=== PATIENT | male | born 1980 | race Caucasian/White ===

== ENCOUNTER 2019-08-11 10:04 | Inpatient (IN) ==
[2019-08-11] MEDS ORDERED: Isovue-370 500 ML BOTTLE IVP ONE (11:36)
[2019-08-11] MEDS ORDERED: Morphine Sulfate 2 MG/ML SYRINGE IVP ONE ×2 (11:41→14:16)
[2019-08-11 11:51] LABS: Basophils # 0.1 K/mcL (0.0-0.2); Basophils % 0.4 %; Eosinophils # 0.2 K/mcL (0.0-0.6); Eosinophils % 1.4 %; Hematocrit 38.4 % (37.5-50.1); Hemoglobin 12.2 g/dL (12.9-16.9); Immature Granulocytes % 0.3 % (0-4); Lymphocytes # 2.8 K/mcL (0.6-4.6); Lymphocytes % 22.1 %; Mean Corpuscular HGB Conc 31.8 g/dL (31.6-35.5); Mean Corpuscular Hemoglobin 24.7 pg (28.0-33.3); Mean Corpuscular Volume 77.7 fL (83.0-100.0); Mean Platelet Volume 8.8 fL (9.4-12.4); Monocytes % 8.1 %; Neutrophils # 8.5 K/mcL (1.6-8.9); Platelet Count 430 K/mcL (140-400); Red Blood Count 4.94 M/mcL (4.19-5.50); Red Cell Distribution Width 15.2 % (11.5-14.5); Segmented Neutrophils % 67.7 %; White Blood Count 12.6 K/mcL (4.3-11.1)
[2019-08-11 12:09] LABS: Alanine Aminotransferase 20 Units/L (7-52); Albumin 3.4 g/dL (3.5-5.7); Albumin/Globulin Ratio 0.8 (1.1-2.2); Alkaline Phosphatase 89 Units/L (34-104); Aspartate Amino Transferase 21 Units/L (13-39); BUN/Creatinine Ratio 13 (6-26); Bilirubin,Total 0.4 mg/dL (0.3-1.0); Blood Urea Nitrogen 8 mg/dL (6-20); Calcium 8.9 mg/dL (8.6-10.3); Carbon Dioxide 27 mEq/L (23-29); Chloride 101 mEq/L (98-107); Globulin 4.2 g/dL (2.4-3.5); Glucose 77 mg/dL (70-105); Osmolality,Calculated 275 (280-300); Potassium 4.4 mEq/L (3.5-5.1); Sodium 134 mEq/L (136-145); Total Protein 7.6 g/dL (6.4-8.9); eGFR For African Americans > 60 (> 60); eGFR For Non-African Americans > 60 (> 60)
[2019-08-11] MEDS ORDERED: Acetaminophen 325 MG TABLET PO PRN (14:35)
[2019-08-11] MEDS ORDERED: Naloxone 0.4 MG/ML INJ IVP PRN (14:35)
[2019-08-11] MEDS: *HR* OxyCODONE Immed Rel 5 MG TABLET PO PRN ×3 (16:33→23:55)
[2019-08-11] MEDS: Piperacillin/Tazobactam 3.375 GM in 0.9 % Sodium Chloride Mini Bag 100 ML IVPB SCH ×2 (16:35→23:41)
[2019-08-11] MEDS ORDERED: Ondansetron 4 MG/2 ML VIAL IVP PRN (17:16)
[2019-08-11] MEDS: Pregabalin 75 MG CAPSULE PO SCH ×2 (18:14→20:49)
[2019-08-11] MEDS: Nicotine 14 MG PATCH.TD24 TD SCH (18:17)
[2019-08-11] MEDS: *HR* LORazepam 0.5 MG TABLET PO PRN (18:19)
[2019-08-11] MEDS: *HR* HYDROcodone/Acet 5/325 mg TABLET PO PRN (20:49)
[2019-08-11] MEDS: Divalproex (12 HR) 500 MG TABLET PO SCH (20:49)
[2019-08-12] MEDS: *HR* HYDROcodone/Acet 5/325 mg TABLET PO PRN (03:47)
[2019-08-12 05:23] LABS: Basophils # 0.1 K/mcL (0.0-0.2); Basophils % 0.4 %; Eosinophils # 0.3 K/mcL (0.0-0.6); Eosinophils % 2.5 %; Hematocrit 37.7 % (37.5-50.1); Hemoglobin 11.4 g/dL (12.9-16.9); Immature Granulocytes % 0.2 % (0-4); Lymphocytes # 2.8 K/mcL (0.6-4.6); Lymphocytes % 22.2 %; Mean Corpuscular HGB Conc 30.2 g/dL (31.6-35.5); Mean Corpuscular Hemoglobin 24.2 pg (28.0-33.3); Monocytes % 8.3 %; Neutrophils # 8.2 K/mcL (1.6-8.9); Platelet Count 441 K/mcL (140-400); Red Blood Count 4.71 M/mcL (4.19-5.50); Red Cell Distribution Width 14.9 % (11.5-14.5); Segmented Neutrophils % 66.4 %; White Blood Count 12.4 K/mcL (4.3-11.1)
[2019-08-12 05:33] LABS: BUN/Creatinine Ratio 15 (6-26); Blood Urea Nitrogen 11 mg/dL (6-20); Carbon Dioxide 28 mEq/L (23-29); Chloride 93 mEq/L (98-107); Glucose 115 mg/dL (70-105); Osmolality,Calculated 270 (280-300); Potassium 4.4 mEq/L (3.5-5.1); Sodium 130 mEq/L (136-145); eGFR For African Americans > 60 (> 60); eGFR For Non-African Americans > 60 (> 60)
[2019-08-12] MEDS: *HR* Enoxaparin 40 MG/0.4 ML SYRINGE SQ SCH (06:10)
[2019-08-12] MEDS ORDERED: *HR* HYDROmorphone 2 MG TABLET PO ONE (06:20)
[2019-08-12] MEDS: Piperacillin/Tazobactam 3.375 GM in 0.9 % Sodium Chloride Mini Bag 100 ML IVPB SCH ×2 (07:52→15:14)
[2019-08-12] MEDS: Divalproex (12 HR) 500 MG TABLET PO SCH ×3 (07:52→22:22)
[2019-08-12] MEDS: Multivit/Ca/Min/Fe/FA 1 TAB TABLET PO SCH (07:53)
[2019-08-12] MEDS: Pregabalin 75 MG CAPSULE PO SCH ×2 (07:53→22:22)
[2019-08-12] MEDS: Nicotine 14 MG PATCH.TD24 TD SCH (07:53)
[2019-08-12] MEDS: *HR* OxyCODONE Immed Rel 5 MG TABLET PO PRN ×2 (12:29→18:20)
[2019-08-12] MEDS: *HR* LORazepam 0.5 MG TABLET PO PRN ×2 (15:19→22:48)
[2019-08-13] MEDS: Piperacillin/Tazobactam 3.375 GM in 0.9 % Sodium Chloride Mini Bag 100 ML IVPB SCH ×4 (00:45→23:56)
[2019-08-13] MEDS: *HR* OxyCODONE Immed Rel 5 MG TABLET PO PRN ×4 (00:47→23:18)
[2019-08-13] MEDS: *HR* Enoxaparin 40 MG/0.4 ML SYRINGE SQ SCH (06:34)
[2019-08-13 06:39] LABS: Basophils # 0.1 K/mcL (0.0-0.2); Basophils % 0.4 %; Eosinophils # 0.4 K/mcL (0.0-0.6); Eosinophils % 2.9 %; Hematocrit 37.9 % (37.5-50.1); Hemoglobin 11.6 g/dL (12.9-16.9); Immature Granulocytes % 0.3 % (0-4); Lymphocytes # 3.2 K/mcL (0.6-4.6); Lymphocytes % 25.2 %; Mean Corpuscular HGB Conc 30.6 g/dL (31.6-35.5); Mean Corpuscular Hemoglobin 24.5 pg (28.0-33.3); Mean Platelet Volume 8.9 fL (9.4-12.4); Monocytes # 1.1 K/mcL (0.0-1.3); Monocytes % 8.5 %; Neutrophils # 7.9 K/mcL (1.6-8.9); Platelet Count 452 K/mcL (140-400); Red Blood Count 4.74 M/mcL (4.19-5.50); Red Cell Distribution Width 15.1 % (11.5-14.5); Segmented Neutrophils % 62.7 %; White Blood Count 12.6 K/mcL (4.3-11.1)
[2019-08-13 06:58] LABS: BUN/Creatinine Ratio 17 (6-26); Blood Urea Nitrogen 11 mg/dL (6-20); Calcium 8.9 mg/dL (8.6-10.3); Carbon Dioxide 30 mEq/L (23-29); Chloride 93 mEq/L (98-107); Glucose 109 mg/dL (70-105); Osmolality,Calculated 274 (280-300); Potassium 4.1 mEq/L (3.5-5.1); Sodium 132 mEq/L (136-145); eGFR For African Americans > 60 (> 60); eGFR For Non-African Americans > 60 (> 60)
[2019-08-13] MEDS: Multivit/Ca/Min/Fe/FA 1 TAB TABLET PO SCH (07:30)
[2019-08-13] MEDS: Divalproex (12 HR) 500 MG TABLET PO SCH ×3 (07:31→20:54)
[2019-08-13] MEDS: Nicotine 14 MG PATCH.TD24 TD SCH (07:31)
[2019-08-13] MEDS: Pregabalin 75 MG CAPSULE PO SCH ×2 (07:31→20:54)
[2019-08-13] MEDS: Acetaminophen 325 MG TABLET PO SCH ×3 (12:04→23:56)
[2019-08-13] MEDS: Ketorolac 30 MG/ML VIAL IVP PRN ×2 (12:05→20:54)
[2019-08-13] MEDS: *HR* LORazepam 0.5 MG TABLET PO PRN (20:54)
[2019-08-14] MEDS ORDERED: Nicotine 2 MG GUM BC PRN (00:47)
[2019-08-14] MEDS: Ketorolac 30 MG/ML VIAL IVP PRN ×2 (03:51→14:02)
[2019-08-14] MEDS: *HR* LORazepam 0.5 MG TABLET PO PRN (03:57)
[2019-08-14 06:12] LABS: Hematocrit 32.1 % (37.5-50.1); Hemoglobin 10.2 g/dL (12.9-16.9); Mean Corpuscular HGB Conc 31.8 g/dL (31.6-35.5); Mean Corpuscular Hemoglobin 24.6 pg (28.0-33.3); Mean Corpuscular Volume 77.5 fL (83.0-100.0); Mean Platelet Volume 8.8 fL (9.4-12.4); Platelet Count 350 K/mcL (140-400); Red Blood Count 4.14 M/mcL (4.19-5.50)
[2019-08-14 06:14] LABS: White Blood Count 6.1 K/mcL (4.3-11.1)
[2019-08-14] MEDS: Acetaminophen 325 MG TABLET PO SCH ×3 (06:21→19:33)
[2019-08-14] MEDS: *HR* Enoxaparin 40 MG/0.4 ML SYRINGE SQ SCH (06:22)
[2019-08-14 06:24] LABS: BUN/Creatinine Ratio 26 (6-26); Blood Urea Nitrogen 20 mg/dL (6-20); Calcium 8.5 mg/dL (8.6-10.3); Carbon Dioxide 32 mEq/L (23-29); Chloride 95 mEq/L (98-107); Glucose 119 mg/dL (70-105); Magnesium 1.8 mg/dL (1.6-2.6); Osmolality,Calculated 282 (280-300); Potassium 3.9 mEq/L (3.5-5.1); Sodium 134 mEq/L (136-145); eGFR For African Americans > 60 (> 60); eGFR For Non-African Americans > 60 (> 60)
[2019-08-14] MEDS: *HR* OxyCODONE Immed Rel 5 MG TABLET PO PRN ×3 (06:28→22:40)
[2019-08-14] MEDS: Divalproex (12 HR) 500 MG TABLET PO SCH ×3 (09:00→22:14)
[2019-08-14] MEDS: Multivit/Ca/Min/Fe/FA 1 TAB TABLET PO SCH (09:01)
[2019-08-14] MEDS: Pregabalin 75 MG CAPSULE PO SCH ×2 (09:01→22:14)
[2019-08-14] MEDS: Nicotine 14 MG PATCH.TD24 TD SCH (09:02)
[2019-08-14] MEDS: Piperacillin/Tazobactam 3.375 GM in 0.9 % Sodium Chloride Mini Bag 100 ML IVPB SCH ×2 (09:04→19:33)
[2019-08-14] MEDS ORDERED: Aminoglycoside Consult 1 EACH MC ONE (14:28)
[2019-08-15] MEDS: Piperacillin/Tazobactam 3.375 GM in 0.9 % Sodium Chloride Mini Bag 100 ML IVPB SCH (00:05)
[2019-08-15] MEDS: Acetaminophen 325 MG TABLET PO SCH ×3 (00:35→12:38)
[2019-08-15] MEDS: *HR* LORazepam 0.5 MG TABLET PO PRN (00:35)
[2019-08-15] MEDS: Ketorolac 30 MG/ML VIAL IVP PRN (00:38)
[2019-08-15] MEDS ORDERED: Piperacillin/Tazobactam 3.375 GM in 0.9 % Sodium Chloride Mini Bag 100 ML IVPB SCH (04:00)
[2019-08-15] MEDS ORDERED: Piperacillin/Tazobactam 3.375 GM VIAL ONE (04:23)
[2019-08-15] MEDS: *HR* Enoxaparin 40 MG/0.4 ML SYRINGE SQ SCH (04:24)
[2019-08-15 04:35] LABS: Hematocrit 30.1 % (37.5-50.1); Hemoglobin 9.6 g/dL (12.9-16.9); Mean Corpuscular HGB Conc 31.9 g/dL (31.6-35.5); Mean Corpuscular Hemoglobin 24.9 pg (28.0-33.3); Mean Corpuscular Volume 78.2 fL (83.0-100.0); Platelet Count 338 K/mcL (140-400); Red Blood Count 3.85 M/mcL (4.19-5.50); Red Cell Distribution Width 14.9 % (11.5-14.5); White Blood Count 5.4 K/mcL (4.3-11.1)
[2019-08-15 04:56] LABS: BUN/Creatinine Ratio 27 (6-26); Blood Urea Nitrogen 18 mg/dL (6-20); Calcium 7.9 mg/dL (8.6-10.3); Carbon Dioxide 31 mEq/L (23-29); Chloride 100 mEq/L (98-107); Glucose 94 mg/dL (70-105); Osmolality,Calculated 284 (280-300); Potassium 4.2 mEq/L (3.5-5.1); Sodium 136 mEq/L (136-145); eGFR For African Americans > 60 (> 60); eGFR For Non-African Americans > 60 (> 60)
[2019-08-15 07:01] VITALS: BP 114/58
[2019-08-15] MEDS: Nicotine 14 MG PATCH.TD24 TD SCH (09:00)
[2019-08-15] MEDS ORDERED: Sulfamethoxazole/Trimeth DS 1 EACH TABLET PO SCH (09:00)
[2019-08-15] MEDS ORDERED: cephALEXin 500 MG CAPSULE PO SCH ×2 (09:00→17:00)
[2019-08-15] MEDS: Divalproex (12 HR) 500 MG TABLET PO SCH (12:38)
[2019-08-15] MEDS: Pregabalin 75 MG CAPSULE PO SCH (12:38)
[2019-08-15] MEDS: *HR* OxyCODONE Immed Rel 5 MG TABLET PO PRN (12:38)
== END 2019-08-15 14:29 | disposition home or self-care (01) | DRG 364 ==
LOC: 3BNU 10:04 → EMEROOARM 10:04 → SUATTDRO 13:50 → 3BNU 14:27 → 3NENU 08-14 23:22
PROVIDERS: ADMIT Internal Medicine; ATTEND Internal Medicine

== ENCOUNTER 2020-02-08 19:50 | Inpatient (IN) ==
[2020-02-08] MEDS ORDERED: *HR* LORazepam 2 MG/ML VIAL IVP ONE (20:21)
[2020-02-08] MEDS ORDERED: *HR* HYDROmorphone (PF) 1 MG/ML SYRINGE IVP ONE ×2 (20:21→21:29)
[2020-02-08 21:02] LABS: Basophils % 0.5 %; Eosinophils # 0.3 K/mcL (0.0-0.6); Eosinophils % 3.3 %; Hematocrit 37.3 % (37.5-50.1); Hemoglobin 11.5 g/dL (12.9-16.9); Immature Granulocytes % 0.2 % (0-4); Lymphocytes # 3.5 K/mcL (0.6-4.6); Lymphocytes % 40.9 %; Mean Corpuscular HGB Conc 30.8 g/dL (31.6-35.5); Mean Corpuscular Hemoglobin 25.2 pg (28.0-33.3); Mean Corpuscular Volume 81.8 fL (83.0-100.0); Mean Platelet Volume 9.1 fL (9.4-12.4); Monocytes # 0.8 K/mcL (0.0-1.3); Monocytes % 9.7 %; Neutrophils # 3.9 K/mcL (1.6-8.9); Platelet Count 395 K/mcL (140-400); Red Blood Count 4.56 M/mcL (4.19-5.50); Red Cell Distribution Width 16.7 % (11.5-14.5); Segmented Neutrophils % 45.4 %; White Blood Count 8.6 K/mcL (4.3-11.1)
[2020-02-08 21:10] LABS: Alanine Aminotransferase 24 Units/L (7-52); Albumin 3.4 g/dL (3.5-5.7); Albumin/Globulin Ratio 0.9 (1.1-2.2); Alkaline Phosphatase 101 Units/L (34-104); Aspartate Amino Transferase 18 Units/L (13-39); BUN/Creatinine Ratio 16 (6-26); Bilirubin,Total 0.3 mg/dL (0.3-1.0); Blood Urea Nitrogen 9 mg/dL (6-20); C-Reactive Protein 135 mg/L (Less than 10); Calcium 8.2 mg/dL (8.6-10.3); Carbon Dioxide 30 mEq/L (23-29); Chloride 101 mEq/L (98-107); Globulin 3.8 g/dL (2.4-3.5); Glucose 99 mg/dL (70-105); Osmolality,Calculated 279 (280-300); Sodium 135 mEq/L (136-145); Total Protein 7.2 g/dL (6.4-8.9); eGFR For African Americans > 60 (> 60); eGFR For Non-African Americans > 60 (> 60)
[2020-02-09] MEDS ORDERED: Ketorolac 15 MG/ML VIAL IVP PRN (00:11)
[2020-02-09] MEDS ORDERED: Naloxone 0.4 MG/ML INJ IVP PRN (00:11)
[2020-02-09] MEDS: *HR* HYDROmorphone (PF) 1 MG/ML SYRINGE IVP PRN ×6 (00:51→21:03)
[2020-02-09] MEDS: Nicotine 21 MG PATCH.TD24 TD SCH ×2 (02:58→07:45)
[2020-02-09] MEDS: *HR* Heparin 5,000 UNIT/ML VIAL SQ SCH ×2 (06:01→16:24)
[2020-02-09 07:23] LABS: Hematocrit 31.7 % (37.5-50.1); Mean Corpuscular HGB Conc 31.5 g/dL (31.6-35.5); Mean Corpuscular Hemoglobin 25.6 pg (28.0-33.3); Mean Corpuscular Volume 81.1 fL (83.0-100.0); Mean Platelet Volume 9.5 fL (9.4-12.4); Platelet Count 348 K/mcL (140-400); Red Blood Count 3.91 M/mcL (4.19-5.50); Red Cell Distribution Width 16.6 % (11.5-14.5); White Blood Count 6.2 K/mcL (4.3-11.1)
[2020-02-09 07:30] LABS: INR 1.2; Prothrombin Time 13.5 Seconds (9.4-12.1)
[2020-02-09 07:47] LABS: BUN/Creatinine Ratio 15 (6-26); Blood Urea Nitrogen 9 mg/dL (6-20); Calcium 8.3 mg/dL (8.6-10.3); Carbon Dioxide 29 mEq/L (23-29); Chloride 102 mEq/L (98-107); Glucose 91 mg/dL (70-105); Magnesium 1.8 mg/dL (1.6-2.6); Osmolality,Calculated 282 (280-300); Phosphorous 4.8 mg/dL (2.7-4.5); Potassium 3.8 mEq/L (3.5-5.1); Sodium 137 mEq/L (136-145); eGFR For African Americans > 60 (> 60); eGFR For Non-African Americans > 60 (> 60)
[2020-02-09] MEDS ORDERED: Vancomycin 1,250 MG/262.5 ML IV.SOLN IVPB SCH (08:00)
[2020-02-09] MEDS: Divalproex (24 HR) 500 MG TABLET PO SCH ×3 (09:41→21:03)
[2020-02-09] MEDS: ALPRAZolam 0.5 MG TABLET PO PRN ×2 (09:41→21:03)
[2020-02-09] MEDS: Pregabalin 75 MG CAPSULE PO SCH ×2 (09:41→21:03)
[2020-02-09] MEDS: Multivit/Ca/Min/Fe/FA 1 TAB TABLET PO SCH (12:53)
[2020-02-09] MEDS: cefTRIAXone 2,000 MG in Water for inj. (sterile) 20 ML IVP SCH (12:54)
[2020-02-09] MEDS: Vancomycin 500 MG in 0.9 % Sodium Chloride Mini Bag 100 ML IVPB ONE ×2 (12:56→13:12)
[2020-02-09] MEDS: Ondansetron 4 MG/2 ML VIAL IVP PRN (16:46)
[2020-02-09] MEDS ORDERED: Vancomycin 1,500 MG/265 ML IV.SOLN IVPB SCH ×2 (20:00→23:00)
[2020-02-10] MEDS: *HR* HYDROmorphone (PF) 1 MG/ML SYRINGE IVP PRN ×5 (00:08→23:33)
[2020-02-10 00:35] LABS: BUN/Creatinine Ratio 17 (6-26); Blood Urea Nitrogen 10 mg/dL (6-20); Carbon Dioxide 30 mEq/L (23-29); Chloride 101 mEq/L (98-107); Glucose 105 mg/dL (70-105); Magnesium 1.6 mg/dL (1.6-2.6); Osmolality,Calculated 277 (280-300); Phosphorous 4.8 mg/dL (2.7-4.5); Potassium 4.4 mEq/L (3.5-5.1); Sodium 134 mEq/L (136-145); eGFR For African Americans > 60 (> 60); eGFR For Non-African Americans > 60 (> 60)
[2020-02-10 00:45] LABS: Basophils % 0.6 %; Eosinophils # 0.4 K/mcL (0.0-0.6); Eosinophils % 8.4 %; Hemoglobin 9.4 g/dL (12.9-16.9); Lymphocytes # 2.5 K/mcL (0.6-4.6); Lymphocytes % 52.3 %; Mean Corpuscular HGB Conc 30.3 g/dL (31.6-35.5); Mean Corpuscular Hemoglobin 25.1 pg (28.0-33.3); Mean Corpuscular Volume 82.9 fL (83.0-100.0); Mean Platelet Volume 9.2 fL (9.4-12.4); Monocytes # 0.4 K/mcL (0.0-1.3); Monocytes % 7.8 %; Neutrophils # 1.5 K/mcL (1.6-8.9); Platelet Count 340 K/mcL (140-400); Red Blood Count 3.74 M/mcL (4.19-5.50); Red Cell Distribution Width 16.2 % (11.5-14.5); Segmented Neutrophils % 30.9 %; White Blood Count 4.8 K/mcL (4.3-11.1)
[2020-02-10] MEDS: Vancomycin 1,500 MG/265 ML IV.SOLN IVPB SCH (00:59)
[2020-02-10] MEDS: *HR* Heparin 5,000 UNIT/ML VIAL SQ SCH ×2 (05:09→19:40)
[2020-02-10] MEDS ORDERED: Total Joint Mixture (50 ml) INTRAART ONE (06:00)
[2020-02-10] MEDS: Multivit/Ca/Min/Fe/FA 1 TAB TABLET PO SCH (10:17)
[2020-02-10] MEDS: Nicotine 21 MG PATCH.TD24 TD SCH (10:27)
[2020-02-10] MEDS: Divalproex (24 HR) 500 MG TABLET PO SCH ×3 (10:28→22:04)
[2020-02-10] MEDS: Pregabalin 75 MG CAPSULE PO SCH ×2 (10:29→22:04)
[2020-02-10] MEDS: cefTRIAXone 2,000 MG in Water for inj. (sterile) 20 ML IVP SCH (10:29)
[2020-02-10] MEDS: Ondansetron 4 MG/2 ML VIAL IVP PRN (10:37)
[2020-02-10] MEDS: ALPRAZolam 0.5 MG TABLET PO PRN ×2 (10:37→23:10)
[2020-02-10] MEDS ORDERED: Vancomycin 1,250 MG/262.5 ML IV.SOLN IVPB SCH ×2 (13:30→23:00)
[2020-02-10] MEDS ORDERED: *HR* FentaNYL (PF) 100 MCG/2 ML VIAL ONE (16:30)
[2020-02-10] MEDS ORDERED: Lidocaine -MPF 2% 2 ML VIAL ONE ×2 (16:30→16:34)
[2020-02-10] MEDS ORDERED: *HR* Midazolam HCl 2 MG/2 ML VIAL ONE (16:30)
[2020-02-10] MEDS ORDERED: *HR* Propofol 200 MG/20 ML VIAL IVP ONE (16:30)
[2020-02-10] MEDS ORDERED: *HR* FentaNYL (PF) 100 MCG/2 ML VIAL IVP PRN (16:37)
[2020-02-10] MEDS ORDERED: Ethanol\\Acetic Acid\\Na Ace\\Ben 1,000 ML IRRIG.SOLN IR ONE (16:50)
[2020-02-10] MEDS ORDERED: Vancomycin 1,000 MG VIAL ONE (16:51)
[2020-02-10] MEDS ORDERED: Ondansetron 4 MG/2 ML VIAL ONE (17:03)
[2020-02-10] MEDS ORDERED: Dexamethasone 4 MG/ML VIAL ONE (17:03)
[2020-02-10] MEDS ORDERED: Tranexamic Acid 1,000 MG/10 ML VIAL ONE (17:23)
[2020-02-10] MEDS ORDERED: *HR* HYDROMORPHONE 2 MG/ML VIAL ONE (17:27)
[2020-02-10] MEDS: *HR* HYDROmorphone PF 0.5 MG/0.5 ML SYRINGE IVP PRN ×4 (18:54→19:13)
[2020-02-10] MEDS ORDERED: *HR* OxyCODONE Immed Rel 5 MG TABLET PO PRN (19:15)
[2020-02-10] MEDS ORDERED: *HR* LORazepam 2 MG/ML VIAL IVP PRN (19:15)
[2020-02-10] MEDS ORDERED: *HR* HYDROmorphone (PF) 1 MG/ML SYRINGE IVP PRN (19:15)
[2020-02-10] MEDS ORDERED: Ringers Solution, Lactated 1,000 ML ONE (19:26)
[2020-02-10 19:46] LABS: Hematocrit 33.8 % (37.5-50.1); Hemoglobin 10.3 g/dL (12.9-16.9)
[2020-02-10] MEDS ORDERED: MOM Conc 10 ML UD.LIQ PO PRN (20:01)
[2020-02-10] MEDS ORDERED: Naloxone 0.4 MG/ML INJ IVP PRN ×2 (20:01)
[2020-02-10] MEDS ORDERED: Ondansetron 4 MG/2 ML VIAL IVP PRN ×2 (20:01)
[2020-02-10] MEDS ORDERED: Ropivacaine/PF 0.5% 24.62 ML, EPINEPHrine 0.25 MG, cloNIDine 0.04 MG, Ketorolac 15 MG, ... INTRAART ONE (20:01)
[2020-02-10] MEDS ORDERED: Sennosides 8.6 MG TABLET PO PRN (20:01)
[2020-02-10] MEDS ORDERED: *HR* Promethazine 25 MG/ML VIAL IVP PRN (20:01)
[2020-02-10] MEDS: Ascorbic Acid 500 MG TABLET PO SCH (22:04)
[2020-02-10] MEDS: Ketorolac 15 MG/ML VIAL IVP PRN (22:04)
[2020-02-11] MEDS: *HR* HYDROmorphone (PF) 1 MG/ML SYRINGE IVP PRN ×3 (04:22→11:48)
[2020-02-11 05:32] LABS: Basophils % 0.1 %; Hematocrit 28.4 % (37.5-50.1); Immature Granulocytes % 0.2 % (0-4); Lymphocytes # 1.4 K/mcL (0.6-4.6); Lymphocytes % 17.5 %; Mean Corpuscular HGB Conc 30.3 g/dL (31.6-35.5); Mean Corpuscular Hemoglobin 24.7 pg (28.0-33.3); Mean Corpuscular Volume 81.6 fL (83.0-100.0); Mean Platelet Volume 9.3 fL (9.4-12.4); Monocytes # 0.5 K/mcL (0.0-1.3); Monocytes % 5.8 %; Neutrophils # 6.2 K/mcL (1.6-8.9); Platelet Count 384 K/mcL (140-400); Red Blood Count 3.48 M/mcL (4.19-5.50); Red Cell Distribution Width 15.7 % (11.5-14.5); Segmented Neutrophils % 76.4 %
[2020-02-11 05:33] LABS: Hemoglobin 8.6 g/dL (12.9-16.9); White Blood Count 8.1 K/mcL (4.3-11.1)
[2020-02-11 05:46] LABS: BUN/Creatinine Ratio 19 (6-26); Blood Urea Nitrogen 10 mg/dL (6-20); Calcium 8.3 mg/dL (8.6-10.3); Carbon Dioxide 31 mEq/L (23-29); Chloride 98 mEq/L (98-107); Glucose 212 mg/dL (70-105); Osmolality,Calculated 281 (280-300); Potassium 4.7 mEq/L (3.5-5.1); Sodium 133 mEq/L (136-145); eGFR For African Americans > 60 (> 60); eGFR For Non-African Americans > 60 (> 60)
[2020-02-11] MEDS: Nicotine 21 MG PATCH.TD24 TD SCH (08:35)
[2020-02-11] MEDS: Divalproex (24 HR) 500 MG TABLET PO SCH ×3 (08:36→20:24)
[2020-02-11] MEDS: Aspirin Enteric Coated 81 MG Tablet PO SCH (08:37)
[2020-02-11] MEDS: Ascorbic Acid 500 MG TABLET PO SCH ×2 (08:38→17:55)
[2020-02-11] MEDS: Pregabalin 75 MG CAPSULE PO SCH ×2 (08:38→20:25)
[2020-02-11] MEDS: cefTRIAXone 2,000 MG in Water for inj. (sterile) 20 ML IVP SCH (08:39)
[2020-02-11] MEDS: ALPRAZolam 0.5 MG TABLET PO PRN ×2 (08:46→14:35)
[2020-02-11] MEDS ORDERED: Multivit/Ca/Min/Fe/FA 1 TAB TABLET PO SCH (09:00)
[2020-02-11] MEDS: Vancomycin 1,250 MG/262.5 ML IV.SOLN IVPB SCH ×2 (09:36→17:54)
[2020-02-11] MEDS: Ketorolac 15 MG/ML VIAL IVP PRN (09:50)
[2020-02-11] MEDS: Multivit/Ca/Min/Fe/FA 1 TAB TABLET PO SCH (11:47)
[2020-02-11] MEDS: *HR* OxyCODONE Immed Rel 5 MG TABLET PO PRN ×2 (14:36→20:25)
[2020-02-11] MEDS: *HR* HYDROcodone/Acet 5/325 mg TABLET PO PRN (17:55)
[2020-02-12] MEDS: *HR* HYDROcodone/Acet 5/325 mg TABLET PO PRN (00:03)
[2020-02-12] MEDS: Vancomycin 1,250 MG/262.5 ML IV.SOLN IVPB SCH ×2 (00:08→09:42)
[2020-02-12] MEDS: ALPRAZolam 0.5 MG TABLET PO PRN ×2 (00:11→16:17)
[2020-02-12] MEDS: *HR* OxyCODONE Immed Rel 5 MG TABLET PO PRN ×3 (02:45→22:56)
[2020-02-12 03:09] LABS: Basophils % 0.1 %; Eosinophils # 0.1 K/mcL (0.0-0.6); Eosinophils % 1.1 %; Hematocrit 24.7 % (37.5-50.1); Hemoglobin 7.6 g/dL (12.9-16.9); Immature Granulocytes % 0.3 % (0-4); Lymphocytes # 3.2 K/mcL (0.6-4.6); Mean Corpuscular HGB Conc 30.8 g/dL (31.6-35.5); Mean Corpuscular Hemoglobin 25.1 pg (28.0-33.3); Mean Corpuscular Volume 81.5 fL (83.0-100.0); Mean Platelet Volume 9.2 fL (9.4-12.4); Monocytes # 0.5 K/mcL (0.0-1.3); Neutrophils # 3.4 K/mcL (1.6-8.9); Platelet Count 327 K/mcL (140-400); Red Blood Count 3.03 M/mcL (4.19-5.50); Red Cell Distribution Width 16.1 % (11.5-14.5); Segmented Neutrophils % 47.5 %; White Blood Count 7.2 K/mcL (4.3-11.1)
[2020-02-12 03:27] LABS: BUN/Creatinine Ratio 14 (6-26); Blood Urea Nitrogen 7 mg/dL (6-20); Calcium 7.9 mg/dL (8.6-10.3); Carbon Dioxide 32 mEq/L (23-29); Chloride 102 mEq/L (98-107); Glucose 123 mg/dL (70-105); Magnesium 1.7 mg/dL (1.6-2.6); Osmolality,Calculated 283 (280-300); Phosphorous 3.7 mg/dL (2.7-4.5); Potassium 4.1 mEq/L (3.5-5.1); Sodium 137 mEq/L (136-145); eGFR For African Americans > 60 (> 60); eGFR For Non-African Americans > 60 (> 60)
[2020-02-12] MEDS ORDERED: *HR* HYDROmorphone (PF) 1 MG/ML SYRINGE IVP PRN (08:34)
[2020-02-12] MEDS ORDERED: *HR* FentaNYL PATCH 25 MCG PATCH TD SCH (08:45)
[2020-02-12] MEDS: Nicotine 21 MG PATCH.TD24 TD SCH (09:33)
[2020-02-12] MEDS: Aspirin Enteric Coated 81 MG Tablet PO SCH (09:35)
[2020-02-12] MEDS: cefTRIAXone 2,000 MG in Water for inj. (sterile) 20 ML IVP SCH (09:38)
[2020-02-12] MEDS: Divalproex (24 HR) 500 MG TABLET PO SCH ×3 (09:38→19:56)
[2020-02-12] MEDS: Ascorbic Acid 500 MG TABLET PO SCH ×2 (09:38→16:17)
[2020-02-12] MEDS: Pregabalin 75 MG CAPSULE PO SCH ×2 (09:38→19:56)
[2020-02-12] MEDS: Multivit/Ca/Min/Fe/FA 1 TAB TABLET PO SCH (12:21)
[2020-02-12 12:46] LABS: Hematocrit 26.8 % (37.5-50.1)
[2020-02-12] MEDS: Vancomycin 1,500 MG/265 ML IV.SOLN IVPB SCH (17:27)
[2020-02-12 20:24] LABS: Hematocrit 31.1 % (37.5-50.1); Hemoglobin 9.4 g/dL (12.9-16.9)
[2020-02-13 01:04] LABS: Basophils % 0.3 %; Eosinophils # 0.2 K/mcL (0.0-0.6); Eosinophils % 3.4 %; Hematocrit 25.5 % (37.5-50.1); Lymphocytes # 2.6 K/mcL (0.6-4.6); Lymphocytes % 44.8 %; Mean Corpuscular HGB Conc 30.6 g/dL (31.6-35.5); Mean Corpuscular Volume 81.7 fL (83.0-100.0); Monocytes # 0.6 K/mcL (0.0-1.3); Monocytes % 10.5 %; Neutrophils # 2.4 K/mcL (1.6-8.9); Platelet Count 346 K/mcL (140-400); Red Blood Count 3.12 M/mcL (4.19-5.50); Red Cell Distribution Width 16.3 % (11.5-14.5); White Blood Count 5.9 K/mcL (4.3-11.1)
[2020-02-13] MEDS: ALPRAZolam 0.5 MG TABLET PO PRN ×2 (01:04→15:31)
[2020-02-13 01:05] LABS: Hemoglobin 7.8 g/dL (12.9-16.9)
[2020-02-13] MEDS: Vancomycin 1,500 MG/265 ML IV.SOLN IVPB SCH ×3 (01:06→19:30)
[2020-02-13 01:25] LABS: BUN/Creatinine Ratio 12 (6-26); Blood Urea Nitrogen 7 mg/dL (6-20); Calcium 8.1 mg/dL (8.6-10.3); Carbon Dioxide 33 mEq/L (23-29); Chloride 100 mEq/L (98-107); Glucose 102 mg/dL (70-105); Magnesium 1.7 mg/dL (1.6-2.6); Osmolality,Calculated 282 (280-300); Phosphorous 4.4 mg/dL (2.7-4.5); Potassium 4.4 mEq/L (3.5-5.1); Sodium 137 mEq/L (136-145); eGFR For African Americans > 60 (> 60); eGFR For Non-African Americans > 60 (> 60)
[2020-02-13] MEDS: *HR* OxyCODONE Immed Rel 5 MG TABLET PO PRN ×2 (09:30→17:57)
[2020-02-13] MEDS: Aspirin Enteric Coated 81 MG Tablet PO SCH (09:56)
[2020-02-13] MEDS: Divalproex (24 HR) 500 MG TABLET PO SCH ×3 (09:56→20:03)
[2020-02-13] MEDS: Nicotine 21 MG PATCH.TD24 TD SCH (09:57)
[2020-02-13] MEDS: Pregabalin 75 MG CAPSULE PO SCH ×2 (09:57→20:03)
[2020-02-13] MEDS: Ascorbic Acid 500 MG TABLET PO SCH ×2 (09:57→17:58)
[2020-02-13] MEDS ORDERED: Lidocaine -MPF 1% 5 ML AMPUL INFILT ONE (10:40)
[2020-02-13] MEDS ORDERED: *HR* OxyCODONE Immed Rel 5 MG TABLET PO ONE (12:05)
[2020-02-13] MEDS: Multivit/Ca/Min/Fe/FA 1 TAB TABLET PO SCH (12:28)
[2020-02-13] MEDS: cefTRIAXone 2,000 MG in Water for inj. (sterile) 20 ML IVP SCH (12:29)
[2020-02-13] MEDS ORDERED: Vancomycin 2,000 MG/520 ML IV.SOLN IVPB SCH (19:00)
[2020-02-13] MEDS: Ringers Solution, Lactated 1,000 ML IVC SCH ×2 (19:31→19:32)
[2020-02-13] MEDS: Vancomycin 2,000 MG/520 ML IV.SOLN IVPB SCH (19:56)
[2020-02-14] MEDS: *HR* OxyCODONE Immed Rel 5 MG TABLET PO PRN ×2 (00:04→06:50)
[2020-02-14] MEDS: ALPRAZolam 0.5 MG TABLET PO PRN (02:53)
[2020-02-14] MEDS ORDERED: Ketorolac 15 MG/ML VIAL IVP ONE (03:01)
[2020-02-14 08:14] VITALS: BP 100/61
[2020-02-14] MEDS: Aspirin Enteric Coated 81 MG Tablet PO SCH (08:24)
[2020-02-14] MEDS: cefTRIAXone 2,000 MG in Water for inj. (sterile) 20 ML IVP SCH (08:25)
[2020-02-14] MEDS: Divalproex (24 HR) 500 MG TABLET PO SCH (08:25)
[2020-02-14] MEDS: Pregabalin 75 MG CAPSULE PO SCH (08:25)
[2020-02-14] MEDS: Nicotine 21 MG PATCH.TD24 TD SCH (08:25)
[2020-02-14] MEDS: Vancomycin 2,000 MG/520 ML IV.SOLN IVPB SCH (08:26)
[2020-02-14] MEDS: Ascorbic Acid 500 MG TABLET PO SCH (09:16)
== END 2020-02-14 11:41 | disposition home health service (06) | DRG 302 ==
LOC: 3NENU 19:50 → EMEROOARM 19:50 → SUATTDRO 22:45 → 3NENU 23:06
PROVIDERS: ADMIT Internal Medicine; ATTEND Internal Medicine

== ENCOUNTER 2020-03-13 15:53 | Observation (INO) ==
[2020-03-13 16:54] LABS: Basophils # 0.1 K/mcL (0.0-0.2); Basophils % 0.6 %; Eosinophils # 0.3 K/mcL (0.0-0.6); Eosinophils % 3.7 %; Hematocrit 32.4 % (37.5-50.1); Hemoglobin 9.8 g/dL (12.9-16.9); Immature Granulocytes % 0.2 % (0-4); Lymphocytes # 3.4 K/mcL (0.6-4.6); Lymphocytes % 41.3 %; Mean Corpuscular HGB Conc 30.2 g/dL (31.6-35.5); Mean Corpuscular Hemoglobin 24.6 pg (28.0-33.3); Mean Corpuscular Volume 81.2 fL (83.0-100.0); Mean Platelet Volume 9.5 fL (9.4-12.4); Monocytes # 0.7 K/mcL (0.0-1.3); Monocytes % 7.8 %; Neutrophils # 3.8 K/mcL (1.6-8.9); Platelet Count 306 K/mcL (140-400); Red Blood Count 3.99 M/mcL (4.19-5.50); Red Cell Distribution Width 15.5 % (11.5-14.5); Segmented Neutrophils % 46.4 %; White Blood Count 8.3 K/mcL (4.3-11.1)
[2020-03-13 16:56] LABS: Estimated Average Glucose 103 mg/dl
[2020-03-13 17:06] LABS: Acetaminophen < 10 mcg/mL (10-20); Alanine Aminotransferase 31 Units/L (7-52); Albumin 3.8 g/dL (3.5-5.7); Albumin/Globulin Ratio 1.2 (1.1-2.2); Alkaline Phosphatase 81 Units/L (34-104); Aspartate Amino Transferase 76 Units/L (13-39); BUN/Creatinine Ratio 20 (6-26); Bilirubin,Direct 0.1 mg/dL (0.0-0.2); Bilirubin,Indirect 0.4 mg/dL (0.0-1.0); Bilirubin,Total 0.5 mg/dL (0.3-1.0); Blood Urea Nitrogen 14 mg/dL (6-20); Carbon Dioxide 28 mEq/L (23-29); Chloride 104 mEq/L (98-107); Chol/HDL Ratio 2.6 (0-4.9); Cholesterol 133 mg/dL (< 200); Ethanol < 10 mg/dL (Less than 10); Globulin 3.1 g/dL (2.4-3.5); Glucose 82 mg/dL (70-105); HDL Cholesterol 52 mg/dL (40-59); LDL Cholesterol,Calculated 69 mg/dL (< 100); Osmolality,Calculated 286 (280-300); Salicylate < 2.5 mg/dL (15.0-30.0); Sodium 138 mEq/L (136-145); Total Protein 6.9 g/dL (6.4-8.9); Triglycerides 59 mg/dL (< 150); eGFR For African Americans > 60 (> 60); eGFR For Non-African Americans > 60 (> 60)
[2020-03-13 17:39] LABS: Amphetamine Screen,Urine Negative ng/mL (Cutoff=1000); Barbiturate Screen,Urine Negative ng/mL (Cutoff=200); Benzodiazepines Screen,Urine Negative ng/mL (Cutoff=200); Cannabinoid Screen,Urine Negative ng/mL (Cutoff = 50); Cocaine Screen,Urine Negative ng/mL (Cutoff= 300); Opiate Screen,Urine Negative ng/mL (Cutoff=300); Phencyclidine Screen,Urine Negative ng/mL (Cutoff=25)
[2020-03-13] MEDS ORDERED: ALPRAZolam 0.5 MG TABLET PO ONE (21:05)
[2020-03-13] MEDS ORDERED: Naloxone 0.4 MG/ML INJ IVP PRN (22:02)
[2020-03-14 01:13] LABS: Basophils % 0.7 %; Eosinophils # 0.2 K/mcL (0.0-0.6); Hematocrit 29.4 % (37.5-50.1); Hemoglobin 8.9 g/dL (12.9-16.9); Immature Granulocytes % 0.2 % (0-4); Lymphocytes % 52.2 %; Mean Corpuscular HGB Conc 30.3 g/dL (31.6-35.5); Mean Corpuscular Hemoglobin 24.7 pg (28.0-33.3); Mean Corpuscular Volume 81.4 fL (83.0-100.0); Mean Platelet Volume 9.7 fL (9.4-12.4); Monocytes # 0.5 K/mcL (0.0-1.3); Monocytes % 8.5 %; Platelet Count 251 K/mcL (140-400); Red Blood Count 3.61 M/mcL (4.19-5.50); Red Cell Distribution Width 15.6 % (11.5-14.5); Segmented Neutrophils % 34.4 %; White Blood Count 5.8 K/mcL (4.3-11.1)
[2020-03-14 01:28] LABS: Alanine Aminotransferase 26 Units/L (7-52); Albumin 3.4 g/dL (3.5-5.7); Albumin/Globulin Ratio 1.3 (1.1-2.2); Alkaline Phosphatase 71 Units/L (34-104); Aspartate Amino Transferase 59 Units/L (13-39); BUN/Creatinine Ratio 20 (6-26); Bilirubin,Total 0.6 mg/dL (0.3-1.0); Blood Urea Nitrogen 11 mg/dL (6-20); Calcium 8.4 mg/dL (8.6-10.3); Carbon Dioxide 25 mEq/L (23-29); Chloride 105 mEq/L (98-107); Globulin 2.6 g/dL (2.4-3.5); Glucose 90 mg/dL (70-105); Osmolality,Calculated 285 (280-300); Potassium 3.4 mEq/L (3.5-5.1); Sodium 138 mEq/L (136-145); eGFR For African Americans > 60 (> 60); eGFR For Non-African Americans > 60 (> 60)
[2020-03-14] MEDS ORDERED: cefTRIAXone 2,000 MG in 0.9 % Sodium Chloride Mini Bag 100 ML IVPB SCH (02:00)
[2020-03-14] MEDS ORDERED: cefTRIAXone 2,000 MG in Water for inj. (sterile) 20 ML IVP SCH (03:00)
[2020-03-14] MEDS ORDERED: Vancomycin 2,000 MG/520 ML IV.SOLN IVPB SCH (03:00)
[2020-03-14] MEDS ORDERED: *HR* Promethazine 25 MG/ML VIAL IVP PRN (04:54)
[2020-03-14] MEDS ORDERED: 0.9 % Sodium Chloride 1,000 ML IVC SCH (05:00)
[2020-03-14] MEDS ORDERED: *HR* Heparin 5,000 UNIT/ML VIAL SQ SCH (06:00)
[2020-03-14] MEDS ORDERED: Cyanocobalamin (B-12) 1,000 MCG TABLET PO SCH (09:00)
[2020-03-14] MEDS ORDERED: *HR* OxyCODONE Immed Rel 5 MG TABLET PO PRN (09:22)
[2020-03-14 10:44] VITALS: BP 128/80
[2020-03-14] MEDS ORDERED: hydrOXYzine pamoate 25 MG CAPSULE PO PRN (12:28)
[2020-03-14 13:11] LABS: C-Reactive Protein 27 mg/L (Less than 10)
[2020-03-14] MEDS ORDERED: Aminoglycoside Consult 1 EACH MC ONE (13:17)
[2020-03-15] MEDS ORDERED: Pregabalin 75 MG CAPSULE PO SCH (09:00)
[2020-03-15] MEDS ORDERED: Aspirin Enteric Coated 81 MG Tablet PO SCH (09:00)
== END 2020-03-14 13:18 | disposition home health service (06) ==
LOC: EMEROOARM 15:53 → 3NENU 15:53 → SUATTDRO 21:57 → 3NENU 23:25
PROVIDERS: ADMIT Student in an Organized Health Care Education/Training Program; ATTEND Internal Medicine